=== PATIENT | female | born 1960 | race Caucasian/White ===

== ENCOUNTER 2018-01-13 06:10 | Inpatient (IN) | payer MEDICARE, MEDICAID ==
[~2018-01-13] VITALS: Ht 167.6 cm; Wt 68.0 kg
[2018-01-13] VITALS (11 sets, daily range): BP systolic 108–143; BP diastolic 68–86
[2018-01-13] MEDS ORDERED: oxyCODONE HCL SR 10MG TAB.SR.12H PO ONE (08:21)
[2018-01-13] MEDS ORDERED: CELECOXIB 100 MG CAPSULE ONE (08:21)
[2018-01-13] MEDS ORDERED: ACETAMINOPHEN 325 MG TABLET ONE (08:21)
[2018-01-13] MEDS ORDERED: CEFAZOLIN SODIUM/DEXTROSE,ISO 50 ML IV ONE (08:22)
[2018-01-13] MEDS ORDERED: FENTANYL PF 100MCG/2ML AMPUL ONE (09:51)
[2018-01-13] MEDS ORDERED: TRANEXAMIC ACID 3,000 MG in SODIUM CHLORIDE IRRIG SOLUTION 70 ML IR ONE (11:00)
[2018-01-13] MEDS ORDERED: MIDAZOLAM HCL 2 MG/2ML VIAL ONE (11:11)
[2018-01-13] MEDS ORDERED: HYDROMORPHONE 1 MG/1 ML DISP.SYRIN IV PRN (12:00)
[2018-01-13] MEDS ORDERED: IV LR 1000 ML 1,000 ML IV PRN (12:00)
[2018-01-13] MEDS ORDERED: ZOFRAN 4mg/2ML IV PRN (12:00)
[2018-01-13] MEDS ORDERED: TYLENOL 650 MG TABLET PO PRN (12:00)
[2018-01-13] MEDS ORDERED: DULCOLAX 10 MG/SUPP.RECT RC PRN (12:00)
[2018-01-13] MEDS ORDERED: SENOKOT 8.6 MG TABLET PO PRN (12:00)
[2018-01-13] MEDS ORDERED: COLACE 250 MG CAPSULE PO PRN (12:00)
[2018-01-13] MEDS ORDERED: HYDROCODONE/APAP 5/325MG 1 EACH TABLET PO PRN (12:30)
[2018-01-13] MEDS ORDERED: MORPHINE SULFATE INJ 4 MG/ML DISP.SYRIN IV PRN ×3 (12:30→17:00)
[2018-01-13] MEDS ORDERED: BACITRACIN 50000 UNITS/VIAL ONE (13:02)
--- NOTE | 2018-01-13 14:00 | NUR ---
MS RN NOTES PATIENT ARRIVED AT UNIT AT 1330. PATIENT AWAKE, ALERT AND ORIENTED. ABLE TO MAKE NEEDS KNOWN AND FOLLOW SIMPLE INSTRUCTIONS. BREATHING EVEN AND UNLABORED. PATIENT S/P RIGHT TOTAL HIP ARTHROPLASTY. WITH SENSATION ON BOTH FEET AND ABLE TO MOVE BLE. DENIES ANY PAIN OR DISCOMFORT. HIP ABDUCTOR PILLOW IN PLACE. DVT PUMPS IN PLACE. PATIENT ENDORSED TO UNIT, CALL LIGHT SYSTEM, MEAL TIMES AND MENU, REHABILITATION. WILL CONTINUE TO MONITOR.
[2018-01-13] MEDS ORDERED: ZOLPIDEM TARTRATE 5 MG TABLET PO PRN (15:30)
[2018-01-13] MEDS ORDERED: KETOROLAC TROMETHAMINE INJ 30 MG/ML VIAL IM PRN (15:30)
[2018-01-13] MEDS ORDERED: MAGNESIUM HYDROXIDE 30 ML UDC PO PRN (15:30)
[2018-01-13] MEDS ORDERED: ACETAMINOPHEN 325 MG TABLET PO PRN (15:30)
[2018-01-13] MEDS ORDERED: ONDANSETRON HCL/PF 4 MG/2 ML VIAL IVP PRN (15:30)
[2018-01-13] MEDS ORDERED: Z GUARD REMEDY 2 OZ OINT TP PRN (15:30)
[2018-01-13] MEDS ORDERED: MAG HYDROX/AL HYDROX/SIMETH 30 ML UDC PO PRN (15:30)
[2018-01-13 15:33] LABS: BASOPHILS % (AUTO) 0.2 % (0.0-2.0); EOSINOPHILS # (AUTO) 0.1 /CMM (0.0-0.7); EOSINOPHILS % (AUTO) 0.8 % (0.0-6.0); HEMATOCRIT 32 % (33-45); HEMOGLOBIN 11.1 g/dL (11.5-14.8); LYMPHOCYTES # (AUTO) 1.4 /CMM (0.8-4.8); LYMPHOCYTES % (AUTO) 15.7 % (20.0-44.0); MEAN CORPUSCULAR HEMOGLOBIN 30 PG (26.0-33.0); MEAN CORPUSCULAR HGB CONC 34 g/dl (31.0-36.0); MEAN CORPUSCULAR VOLUME 88 fL (82-100); MONOCYTES # (AUTO) 0.5 /CMM (0.1-1.30); MONOCYTES % (AUTO) 5.9 % (2.0-12.0); NEUTROPHILS % (AUTO) 77.4 % (43.0-81.0); PLATELET COUNT (AUTO) 219 /CMM (150-450); RDW COEFFICIENT OF VARIATION 12.6 (11.5-15.0); RED BLOOD CELL COUNT(AUTO) 3.68 MIL/uL (4.0-5.2)
[2018-01-13 15:37] LABS: CALCIUM, SERUM 8.3 mg/dL (8.5-10.1); CREATININE 0.7 mg/dL (0.6-1.3); MAGNESIUM 2.2 mg/dL (1.8-2.4); POTASSIUM 4.2 mmol/L (3.5-5.1)
--- NOTE | 2018-01-13 15:57 | NUR ---
MS RN NOTES PLACED CALL TO DR. ARAIZA'S OFFICE AND MADE AWARE. SPOKE WITH NICHOL AND LEFT MESSAGE FOR DR. ARAIZA. AWAITING FOR CALL BACK
[2018-01-13] MEDS ORDERED: diphenhydrAMINE HCL 50 MG/ML VIAL IV PRN (16:00)
[2018-01-13] MEDS ORDERED: HYDROMORPHONE INJ 2 MG/ML DISP.SYRIN IV PRN (16:00)
--- NOTE | 2018-01-13 16:10 | NUR ---
MS RN NOTES RECEIVED CALL FROM DR. VAZQUEZ (PAIN MGT) AND MADE AWARE. VERBALIZED HE WILL COME AND SEE THE PATIENT. WILL CONTINUE TO MONITOR
[2018-01-13] MEDS ORDERED: ALBU18HF2 IH (16:25)
[2018-01-13] MEDS ORDERED: HYDR4TAB57 PO (16:25)
[2018-01-13] MEDS ORDERED: FLUT16SP BNOSTRILS (16:25)
[2018-01-13] MEDS ORDERED: CARI350T27 PO (16:25)
[2018-01-13] MEDS ORDERED: HYDROMORPHONE HCL 2 MG TABLET PO ONE (17:49)
[2018-01-13] MEDS: ANCEF 1 G in IV D5W 50 ML IV SCH (17:53)
[2018-01-13] MEDS ORDERED: HYDROMORPHONE HCL 2 MG TABLET PO PRN ×2 (18:00→18:02)
--- NOTE | 2018-01-13 18:00 | NUR ---
MS RN NOTES PATIENT SEEN AND EXAMINED BY DR. VAZQUEZ. ORDERS NOTED AND CARRIED OUT
[2018-01-13] MEDS ORDERED: NALOXONE HCL 0.4 MG/ML AMPUL IV PRN (18:30)
--- NOTE | 2018-01-13 19:00 | NUR ---
MS RN NOTES PATIENT RESTING INSIDE ROOM, AWAKE, ALERT AND ORIENTED. ABLE TO MAKE NEEDS KNOWN AND FOLLOW SIMPLE INSTRUCTIONS. BREATHING EVEN AND UNLABORED. NO SOB OR ACUTE DISTRESS NOTED. ABDUCTOR PILLOW IN PLACE, DVT PUMPS IN PLACE. ENDORSED TO INCOMING SHIFT. BED LOCKED AND IN LOW POSITION, BILATERAL UPPER SIDE RAILS UP AND LOCKED. CALL LIGHT WITHIN EASY REACH
--- NOTE | 2018-01-13 19:35 | NUR ---
RN OPENING NOTES RECEIVED REPORT FROM [facility] CODY PÉREZ. FOUND Pt AWAKE IN BED, C/O 10/10 PAIN. WILL ADMINISTER PAIN MED IF DUE. Pt IS A/OX4, VERBAL, ABLE TO MAKE NEEDS KNOWN. ON TELE MONITOR. REYES CATHETER IN PLACE, DRAINING WELL. SURGICAL DRESSING ON RHIP INTACT, NO BLEEDING NOTED. IV ACCESS ON L HAND #20G. SAFETY MEASURES IN PLACE. BED LOW, LOCKED, HOB ELEVATED, SIDE RAILS UP, ABDUCTOR PILLOW ON, CALL LIGHT AND BEDSIDE TABLE WITHIN REACH. WILL CONTINUE TO MONITOR PT THROUGHOUT THE NIGHT.
[2018-01-13] MEDS: HYDROMORPHONE INJ 2 MG/ML DISP.SYRIN IV PRN (19:55)
[2018-01-13] MEDS ORDERED: oxyCODONE HCL SR 10MG TAB.SR.12H PO SCH (21:00)
[2018-01-13] MEDS: MORPHINE SULFATE SR 30 MG TABLET.SA PO SCH (21:55)
[2018-01-13] MEDS: PANTOPRAZOLE 40 MG TABLET.DR PO SCH (21:56)
[2018-01-13] MEDS ORDERED: AMBIEN 5 MG TABLET PO PRN (22:00)
[2018-01-14] VITALS: BP 159/95
[2018-01-14] MEDS: HYDROMORPHONE INJ 2 MG/ML DISP.SYRIN IV PRN ×4 (00:27→18:18)
[2018-01-14] MEDS: ANCEF 1 G in IV D5W 50 ML IV SCH (01:56)
[2018-01-14 04:00] VITALS: BP 144/88
[2018-01-14] MEDS: MORPHINE SULFATE SR 30 MG TABLET.SA PO SCH ×3 (05:42→21:16)
--- NOTE | 2018-01-14 05:45 | NUR ---
RN NOTES Pt VOMITED X1. OFFERED ICE CHIPS. Pt SAID SHE FELT BETTER.
[2018-01-14 06:30] LABS: BASOPHILS % (AUTO) 0.3 % (0.0-2.0); HEMATOCRIT 27 % (33-45); HEMOGLOBIN 9.3 g/dL (11.5-14.8); LYMPHOCYTES # (AUTO) 0.8 /CMM (0.8-4.8); LYMPHOCYTES % (AUTO) 9.4 % (20.0-44.0); MEAN CORPUSCULAR HEMOGLOBIN 30 PG (26.0-33.0); MEAN CORPUSCULAR HGB CONC 35 g/dl (31.0-36.0); MEAN CORPUSCULAR VOLUME 88 fL (82-100); MONOCYTES # (AUTO) 0.8 /CMM (0.1-1.30); MONOCYTES % (AUTO) 9.3 % (2.0-12.0); NEUTROPHILS # (AUTO) 7.1 /CMM (1.8-8.9); PLATELET COUNT (AUTO) 207 /CMM (150-450); RDW COEFFICIENT OF VARIATION 12.7 (11.5-15.0); RED BLOOD CELL COUNT(AUTO) 3.07 MIL/uL (4.0-5.2); WHITE BLOOD COUNT (AUTO) 8.7 K/uL (4.3-11.0)
[2018-01-14] MEDS ORDERED: ONDANSETRON HCL/PF 4 MG/2 ML VIAL IV PRN (06:30)
--- NOTE | 2018-01-14 06:31 | NUR ---
RN CLOSING NOTES NO OTHER SIGNIFICANT CHANGES IN Pt's CONDITION. Pt REMAINS IN STABLE CONDITION AT THIS TIME. VS STABLE. WAS SEEN BY DR VAZQUEZ AT 0600. INCENTIVE SPIROMETER ORDERED. PROVIDED EDUCATION ON USE TO Pt. ALL NEEDS MET AND ATTENDED TO. SAFETY MEASURES IN PLACE. BED LOW, LOCKED, HOB ELEVATED, SIDE RAILS UP, CALL LIGHT AND BEDSIDE TABLE WITHIN REACH. WILL ENDORSE TO DAYSHIFT RN FOR Pt's JUANJOSE. Addendum: 01/14/18 at 0638 by REDDY VALERIO RN TELE MONITOR READING SR [id number]
[2018-01-14 06:40] LABS: CALCIUM, SERUM 7.7 mg/dL (8.5-10.1); CREATININE 0.6 mg/dL (0.6-1.3); MAGNESIUM 1.8 mg/dL (1.8-2.4); PHOSPHORUS 3.4 mg/dL (2.5-4.9); POTASSIUM 4.2 mmol/L (3.5-5.1)
[2018-01-14 08:00] VITALS: BP 15/98
--- NOTE | 2018-01-14 08:00 | NUR ---
BAGGING SALVAGER AM NOTES RECEIVED Pt AWAKE IN BED, C/O 04/11 PAIN.DILAUDID 2MG IV PAIN MED GIVEN JUST A FEW MINS AGO.PT IS A/OX4, VERBAL, ABLE TO MAKE NEEDS KNOWN. ON TELE MONITOR. WITH REYES CATHETER IN PLACE, DRAINING WELL. SURGICAL DRESSING ON RT HIP CLEAN,DRY AND INTACT, NO BLEEDING NOTED. IV ACCESS ON L HAND #20G WITH LR AT 75 ML/HR INFUSING WELL AND WAS DC'D. SAFETY MEASURES IN PLACE. BED LOW, LOCKED, HOB ELEVATED, SIDE RAILS UP, ABDUCTOR PILLOW ON, CALL LIGHT AND BEDSIDE TABLE WITHIN REACH. WILL CONTINUE TO MONITOR
[2018-01-14] MEDS: DOCUSATE SODIUM 100 MG CAPSULE PO SCH ×2 (08:56→18:18)
[2018-01-14] MEDS: CARISOPRODOL 350 MG TABLET PO PRN (09:00)
--- NOTE | 2018-01-14 10:00 | NUR ---
PT AMBULATED WITH P.T. FOR 60 FT USING FWW.TOLERATED WELL.PAIN MGT EFFECTIVE.
[2018-01-14] MEDS: FLUTICASONE PROPIONATE 16 GM BOTTLE NS SCH ×2 (12:08→18:19)
[2018-01-14] MEDS ORDERED: ALBUTEROL FS 2.5 MG/3 ML VIAL.NEB NEB PRN (13:30)
--- NOTE | 2018-01-14 14:38 | NUR ---
PT AMBULATED WITH P.T. 100 FT USING FWW,PT TOLERATED WELL.PAIN MGT EFFECTIVE.
[2018-01-14 16:00] VITALS: BP 126/84
[2018-01-14] MEDS: RIVAROXABAN 10 MG TABLET PO SCH (18:21)
--- NOTE | 2018-01-14 18:47 | NUR ---
MS RN CLOSING NOTES RECEIVED Pt AWAKE IN BED, C/O 06/11 PAIN.DILAUDID 2MG IV PAIN MED GIVEN.PAIN MGT EFFECTIVE THROUGHOUT THE SHIFT.PT IS A/OX4, VERBAL, ABLE TO MAKE NEEDS KNOWN. WITH REYES CATHETER IN PLACE, DRAINING YELLOW URINE 1800 ML IN OUTPUT.SURGICAL DRESSING ON RT HIP CLEAN,DRY AND INTACT, NO BLEEDING NOTED. IV ACCESS ON L HAND #20G INTACT.SAFETY MEASURES IN PLACE. BED LOW, LOCKED, HOB ELEVATED, SIDE RAILS UP, ABDUCTOR PILLOW ON, CALL LIGHT AND BEDSIDE TABLE WITHIN REACH. WILL CONTINUE TO MONITOR
--- NOTE | 2018-01-14 19:30 | NUR ---
MS RN OPENING NOTE RECEIVED PATIENT IN BED, ALERT ORIENTED X4, ON ROOM AIR, NO SIGNS OF DISTRESS OR DISCOMFORT NOTED, DENIES SOB. RESPIRATIONS EVEN AND UNLABORED. PATIENT DENIES PAIN AT THIS TIME. PATIENT WITH REYES CATHETER IN PLACE, KEPT CLEAN AND INTACT. L HAND 20G SL. PATENT AND INTACT, FLASHED WITH NS NO SIGN OF INFILTRATION OBSERVED. SAFETY MEASURES IN PLACE, BED IN LOW LOCKED POSITION, SIDE RAILS UP X2, CALL LIGHT WITHIN EASY REACH. WILL CONTINUE TO MONITOR.
[2018-01-14 20:00] VITALS: BP 113/78
[2018-01-14] MEDS ORDERED: CARISOPRODOL 350 MG TABLET PO SCH (21:00)
[2018-01-14] MEDS: PANTOPRAZOLE 40 MG TABLET.DR PO SCH (21:16)
--- NOTE | 2018-01-14 23:37 | NUR ---
MS RN NOTES PATIENT IN BED, SLEEPING COMFORTABLY. IN STABLE CONDITION, VITAL SIGNS STABLE. ON ROOM AIR, NO SIGNS OF DISTRESS OR DISCOMFORT NOTED. RESPIRATIONS EVEN AND UNLABORED. PATIENT WITH REYES CATHETER IN PLACE, KEPT CLEAN AND INTACT. L HAND 20G SL. PATENT AND INTACT, FLASHED WITH NS NO SIGN OF INFILTRATION OBSERVED. EVENING SCHEDULED MEDICATIONS GIVEN, SAFETY MEASURES IN PLACE, BED IN LOW LOCKED POSITION, SIDE RAILS UP X2, CALL LIGHT WITHIN EASY REACH. WILL ENDORSE TO ANOTHER NURSE FOR CONTINUITY OF CARE.
--- NOTE | 2018-01-15 | NUR ---
MS RN NOTE REPORT WAS GIVEN. PT IS IN BED SLEEPING, EASILY AROUSED. NO SIGNS OF SOB OR DISTRESS. DENIES PAIN AT THIS TIME. BED IS IN LOW AND LOCKED POSITION, CALL LIGHT WITHIN REACH. WILL CONTINUE TO MONITOR PT
[2018-01-15] MEDS: HYDROMORPHONE INJ 2 MG/ML DISP.SYRIN IV PRN ×4 (01:07→16:43)
--- NOTE | 2018-01-15 06:25 | NUR ---
MS RN CLOSING NOTE PT IS IN BED RESTING, NO SIGNS OF SOB OR DISTRESS. BREATHING EVENLY AND UNLABORED ON RA. IV ACCESS IS INTACT AND PATENT. REYES CATHETER IS INTACT AND DRAINING. NO ACUTE CHANGES THROUGHOUT THE SHIFT. MEDICATION WAS GIVEN FOR PAIN REQUESTED. ALL NEEDS WERE ANTICIPATED AND MET. BED IS IN LOW AND LOCKED POSITION, CALL LIGHT WITHIN REACH. WILL ENDORSE TO DAYSHIFT.
--- NOTE | 2018-01-15 07:15 | NUR ---
RN OPENING NOTES RECEIVED PT. IN BED A&OX4. BREATHING UNLABORED, AND EVENLY ON ROOM AIR. NO S/S OF ACUTE DISTRESS. IV FLUIDS AT BEDSIDE. RIGHT HIP DRESSING IS INTACT. PT. HAS A REYES CATHETER WITH CLEAR, AND YELLOW URINE, 50 CC OUTPUT. 2 SIDE RAILS UP, AND INSTRUCTED PT. TO USE CALL LIGHT FOR ASSISTANCE. ALL NEEDS MET. WILL CONTINUE TO ASSESS AND MONITOR.
[2018-01-15 07:27] LABS: THYROID STIMULATING HORMONE 3.479 uIU/mL (0.358-3.74)
[2018-01-15 07:28] LABS: CALCIUM, SERUM 7.7 mg/dL (8.5-10.1); CREATININE 0.7 mg/dL (0.6-1.3); PHOSPHORUS 2.6 mg/dL (2.5-4.9); POTASSIUM 4.4 mmol/L (3.5-5.1)
[2018-01-15 08:00] VITALS: BP 101/67
[2018-01-15] MEDS ORDERED: MORPHINE SULFATE SR 30 MG TABLET.SA PO SCH (09:00)
[2018-01-15] MEDS: DOCUSATE SODIUM 100 MG CAPSULE PO SCH ×2 (09:26→16:51)
[2018-01-15] MEDS: FLUTICASONE PROPIONATE 16 GM BOTTLE NS SCH ×2 (09:26→16:52)
[2018-01-15] MEDS: CARISOPRODOL 350 MG TABLET PO PRN (10:01)
[2018-01-15] MEDS ORDERED: FOLIC ACID 1 MG TABLET PO SCH (11:00)
--- NOTE | 2018-01-15 11:02 | NUR ---
RN NOTES REMOVED PT.'S REYES CATHETER. PT. HAD 400 CC OF CLEAR, AND YELLOW URINE REMOVED. PT. TOLERATED WELL.
--- NOTE | 2018-01-15 12:00 | NUR ---
RN NOTES PT.'S RIGHT HIP DRESSING WAS CHANGED. NO S/S OF BLEEDING OR INFECTION NOTED. CLEANED SITE WITH NORMAL SALINE, AND PATTED DRY WITH CLEAN GAUZE. COVERED INCISION SITE WITH A GLORY GAUZE, COVERED WITH ABDOMINAL PAD AND SECURED WITH PAPER TAPE. PT. TOLERATED DRESSING CHANGE WELL. PT. HAD [address] ON RIGHT HIP POST OP, AND A PICTURE WAS PLACED IN CHART.
--- NOTE | 2018-01-15 12:41 | NUR ---
RN NOTES SPOKE WITH CODY KNAPP FROM [facility], VIA PHONE. DISCUSSED PT. CONDITION. ALL QUESTIONS ANSWERED.
--- NOTE | 2018-01-15 14:44 | NUR ---
RN NOTES PT. VOIDED 450 CC OF CLEAR, AND YELLOW URINE INTO BEDPAN WITH ASSISTANCE.
[2018-01-15 16:00] VITALS: BP 101/68
[2018-01-15] MEDS: RIVAROXABAN 10 MG TABLET PO SCH (16:54)
--- NOTE | 2018-01-15 17:00 | NUR ---
LECTURER IN MARKETING NOTE PT. LEFT IN MEDICALLY STABLE CONDITION BY AMBULANCE CREW. DISCHARGE INSTRUCTIONS WERE PROVIDED, AND PT. VERBALIZED UNDERSTANDING. DISCHARGE PAPER WERE SIGNED. BELONGINGS LIST WAS CHECKED, AND SIGNED. PLACED ALL OF PT.'S MEDICATIONS FOUND IN PURSE INTO A PLASTIC BAG, WHICH INCLUDED 2 BOTTLES OF FLONASE, VENTOLIN INHALER, FLOVENT INHALER, 2 CONTACT LENSES, PRESCRIPTION ATENOLOL, XARELTO, AND PAREKH LAXATIVE CAPLETS. PT. WAS GIVEN PAIN MEDICATIONS BEFORE TRANSFER. ID BAND, AND IV WAS REMOVED WITHOUT COMPLICATIONS. ALL BELONGINGS, AND DISCHARGE PACKET WAS TAKEN BY AMBULANCE CREW. ALL QUESTIONS WERE ANSWERED.
== END 2018-01-15 17:27 | DRG 470 ==
LOC: DS 06:10 → MED 13:21 → TELE 20:08 → MED 01-14 09:26
PROVIDERS: ADMIT Specialist; ATTEND Specialist
PROC: 0SR90JZ Replacement of Right Hip Joint with Synthetic Substitute, Open Approach (ICD-10-PCS; principal; 2018-01-13 10:50)
DX: M16.11 Unilateral primary osteoarthritis, right hip (principal); I11.9 Hypertensive heart disease without heart failure; F11.20 Opioid dependence, uncomplicated; E55.9 Vitamin D deficiency, unspecified; I34.1 Nonrheumatic mitral (valve) prolapse; I34.0 Nonrheumatic mitral (valve) insufficiency; E78.5 Hyperlipidemia, unspecified; Z86.73 Personal history of transient ischemic attack (TIA), and cerebral infarction without residual deficits; Z83.3 Family history of diabetes mellitus; Z82.49 Family history of ischemic heart disease and other diseases of the circulatory system; G89.4 Chronic pain syndrome; J45.20 Mild intermittent asthma, uncomplicated; K21.9 Gastro-esophageal reflux disease without esophagitis; E66.3 Overweight; Z68.24 Body mass index [BMI] 24.0-24.9, adult
CPT/HCPCS: 36415; 80048-TC; 82746; 83735-TC; 84100-TC; 84443-TC; 85025-TC; 86850-TC; 86921-TC; 87081-TC; 88305-TC; 88311-TC; 97110-TC; 97116-TC; 97530-TC; A4217; A6209; A6253; A6403; J0690; J1170; J2250; J2270; J2405; J3010; J7060; J7120; Z7610